=== PATIENT | female | born 1970 | race African-American/Black ===

== ENCOUNTER 2017-07-28 10:05 | Emergency (ER) | payer MEDICAID, MEDICARE, OTHER ==
[~2017-07-28] VITALS: Ht 170.2 cm; Wt 109.0 kg
[~2017-07-28 10:05] MED LIST: B50; BACL-141; DIAZ1KIT6; EMTR1TAB11; KETO10TA2; TRAM50TA94; VITAMIN B12; VITAMIN D; [UNRECOGNIZED DRUG - OTHER]
[2017-07-28] MEDS ORDERED: [UNRECOGNIZED DRUG - REMARK] (10:30)
[2017-07-28] MEDS ORDERED: TOP100 PO (10:30)
[2017-07-28] MEDS ORDERED: METO-396 PO (10:30)
[2017-07-28] MEDS ORDERED: GABA-529 PO (10:30)
[2017-07-28] MEDS: METHYLPREDNISOLONE SOD SUCC 125 MG/2 ML VIAL IV ONE ×2 (15:04→15:09)
[2017-07-28] MEDS: DIPHENHYDRAMINE 50MG/ML VIAL IV ONE ×2 (15:04→15:09)
[2017-07-28] MEDS: SODIUM CHLORIDE 0.9% 500 ML IV ONE ×2 (15:04→15:09)
[2017-07-28 16:46] VITALS: BP 128/53
== END 2017-07-28 16:47 | disposition home or self-care (01) ==
LOC: ER 10:49
DX: G24.9 Dystonia, unspecified (principal); I10 Essential (primary) hypertension; Z88.2 Allergy status to sulfonamides
CPT/HCPCS: 81025; 96361; 96374; 96375; 99284; J1200; J2930; J7030; J7040